=== PATIENT | female | born 1950 | race Caucasian/White ===

== ENCOUNTER 2017-10-06 18:33 | Emergency (ER) | payer MEDICARE ==
[~2017-10-06] VITALS: Ht 170.2 cm; Wt 91.0 kg
[~2017-10-06 18:33] MED LIST: CALTTAB PO; FLUO40CA PO; OXYC1SOL5 PO; PREM.625 PO; RIVA10 PO; TAB-TAB PO; Z.0.COMMODE-3:1; Z.0.WALKERFRONT
[2017-10-06 18:52] VITALS: BP 141/82; PULSE 142; RESP 21; TEMP 98.7; O2SAT 98
--- NOTE | 2017-10-06 18:53 | PD ---
Physical Exam Date Seen by Provider: Oct 06, 2017 Narrative Patient presents complaining with fatigue, difficulty walking secondary to weakness, chest discomfort. Onset has been 1-2 weeks. She has a history of multiple sclerosis. Data Data Orders Orders Diltiazem Inj (Cardizem Inj) (10/06/17 19:00) Electrocardiogram (10/06/17 18:47) Basic Metabolic Panel (Bmp) (10/06/17 18:47) Ckmb (Isoenzyme) Profile (10/06/17 18:47) Complete Blood Count With Diff (10/06/17 18:47) Magnesium (Mg) (10/06/17 18:47) Prothrombin Time / Inr (Pt) (10/06/17 18:47) Act Partial Throm Time (Ptt) (10/06/17 18:47) Troponin I (10/06/17 18:47) Chest, Single Ap (10/06/17 18:47) Ecg Monitoring (10/06/17 18:47) Bilateral Bp Monitoring (10/06/17 18:47) Iv Access Insert/Monitor (10/06/17 18:47) Oximetry (10/06/17 18:47) Oxygen Administration (10/06/17 18:47) Aspirin Chew (Aspirin Chew) (10/06/17 19:00) Sodium Chloride 0.9% Flush (Ns Flush) (10/06/17 19:00) MDM Supervised Visit with MAYI: Yes Narrative Course I, Dr. Broderick, have reviewed the advance practice practitioner's documentation and am in agreement, met with the patient face to face, made the diagnosis, and the medical decision making was done by me. *My assessment and Findings: Her EKG had a normal sinus rhythm with no acute ischemic changes. The patient is awake and alert and in no acute distress. Please see Jessica Luna NP's note for laboratory and radiology results, final diagnosis and disposition Mayda Broderick MD Oct 06, 2017 18:53
--- NOTE | 2017-10-06 18:54 | PD ---
HPI Chief Complaint: palpitations Time Seen by Provider: 18:43 Travel History International Travel<30 days: No Contact w/Intl Traveler<30days: No History of Present Illness HPI 67-year-old female presents to the emergency department for evaluation of feeling like her heart is racing for the past 3 hours. Patient states she has been having intermittent short episodes of feeling like her heart is racing for the past year. However, it will usually go away but would not go away this time. Patient has never followed up with anybody about this issue. She reports history of anxiety. She denies any chest pain. No fevers or chills. No abdominal pain. No nausea, vomiting, diarrhea. Patient states that she had a cardiac catheterization approximately 10 years ago which was normal as never had any issues since. Moderate severity. No exacerbating or alleviating factors. PFSH Past Medical History Arthritis: No Asthma: No Anxiety: Yes Depression: Yes Heart Rhythm Problems: No Cancer: No Cardiovascular Problems: Yes (ARRHYTHMIA) Chemotherapy: No Chest Pain: No Congestive Heart Failure: No COPD: No Cerebrovascular Accident: No Diabetes: No Diminished Hearing: No Endocrine: No GERD: No Genitourinary: No Hepatitis: No Hiatal Hernia: No Immune Disorder: No Kidney Stones: No Musculoskeletal: Yes (ARTHRITIS, OSTEOPOROSIS) Neurologic: No Psychiatric: Yes (ANXIETY) Reproductive: No Respiratory: Yes (ASTHMA YOUTH) Migraines: No Radiation Therapy: No Seizures: No Sickle Cell Disease: No Sleep Apnea: No Thyroid Disease: No Ulcer: No Menopausal: Yes Past Surgical History AICD: No Arteriovenous Shunt: No Body Medical Devices: LEFT KNEE WITH SCREWS Eye Surgery: Yes (LEFT CATARACT EXTRACT.) Insulin Pump: No Joint Replacement: Yes (LEFT KNEE) Pacemaker: No Social History Alcohol Use: Yes (OCC) Tobacco Use: No (QUIT) Substance Use: No Allergies-Medications (Allergen,Severity, Reaction): Coded Allergies: morphine (Unverified Adverse Reaction, Intermediate, NAUSEA, 06/29/17) OK IF GIVEN WITH PHENERGAN Reported Meds & Prescriptions Reported Meds & Active Scripts Active Walker Front Wheel (Walkerfront) Device 1 Unit Commode-3:1 Device 1 Unit Xarelto 10 Mg Tab (Rivaroxaban) 10 Mg Tab 10 Mg PO Q24H Oxycodone/Acetaminophen 5 mg/325 mg 5 mg/325 mg Tab 1 Tab PO Q4H PRN Reported Multivitamin (Multivitamins) 1 Tab Tab 1 Tab PO DAILY Caltrate 600+D (Calcium Carbonate/Cholecalciferol) + Tab 1 Tab PO BID Fluoxetine (Fluoxetine HCl) 40 Mg Cap 40 Mg PO DAILY Prempro (Estrogens Conj/Medroxyprogest Acet) 0.625 Mg/2.5 Mg Tab 1 Tab PO HS Review of Systems Except as stated in HPI: all other systems reviewed are Neg Physical Exam Narrative GENERAL: Well-nourished, well-developed female patient, afebrile. SKIN: Focused skin assessment warm/dry. HEAD: Normocephalic. Atraumatic EYES: No scleral icterus. No injection or drainage. NECK: Supple, trachea midline. No JVD or lymphadenopathy. CARDIOVASCULAR: Irregular rhythm, tachycardic without murmurs, gallops, or rubs. Bilateral radial and pedal pulses are 2+. RESPIRATORY: Breath sounds equal bilaterally. No accessory muscle use. Lungs sounds are clear to auscultation. GASTROINTESTINAL: Abdomen soft, non-tender, nondistended. MUSCULOSKELETAL: No cyanosis, or edema. BACK: Nontender without obvious deformity. No CVA tenderness. Data Data Last Documented VS Vital Signs Date Time Temp Pulse Resp B/P (MAP) Pulse Ox O2 Delivery O2 Flow Rate FiO2 10/06/17 20:15 77 18 141/71 (94) 99 10/06/17 18:52 98.7 Room Air Orders Orders Diltiazem Inj (Cardizem Inj) (10/06/17 19:00) Electrocardiogram (10/06/17 18:47) Basic Metabolic Panel (Bmp) (10/06/17 18:47) Ckmb (Isoenzyme) Profile (10/06/17 18:47) Complete Blood Count With Diff (10/06/17 18:47) Magnesium (Mg) (10/06/17 18:47) Prothrombin Time / Inr (Pt) (10/06/17 18:47) Act Partial Throm Time (Ptt) (10/06/17 18:47) Troponin I (10/06/17 18:47) Chest, Single Ap (10/06/17 18:47) Ecg Monitoring (10/06/17 18:47) Bilateral Bp Monitoring (10/06/17 18:47) Iv Access Insert/Monitor (10/06/17 18:47) Oximetry (10/06/17 18:47) Oxygen Administration (10/06/17 18:47) Aspirin Chew (Aspirin Chew) (10/06/17 19:00) Sodium Chloride 0.9% Flush (Ns Flush) (10/06/17 19:00) CKMB (10/06/17 19:00) CKMB% (10/06/17 19:00) Electrocardiogram (10/06/17 ) Aspirin Chew (Aspirin Chew) (10/06/17 20:30) Labs Laboratory Tests Test 10/06/17 19:00 White Blood Count 10.0 TH/MM3 Red Blood Count 4.81 MIL/MM3 Hemoglobin 15.2 GM/DL Hematocrit 45.1 % Mean Corpuscular Volume 93.7 FL Mean Corpuscular Hemoglobin 31.6 PG Mean Corpuscular Hemoglobin Concent 33.7 % Red Cell Distribution Width 12.9 % Platelet Count 244 TH/MM3 Mean Platelet Volume 9.2 FL Neutrophils (%) (Auto) 56.6 % Lymphocytes (%) (Auto) 36.2 % Monocytes (%) (Auto) 6.1 % Eosinophils (%) (Auto) 0.6 % Basophils (%) (Auto) 0.5 % Neutrophils # (Auto) 5.6 TH/MM3 Lymphocytes # (Auto) 3.6 TH/MM3 Monocytes # (Auto) 0.6 TH/MM3 Eosinophils # (Auto) 0.1 TH/MM3 Basophils # (Auto) 0.0 TH/MM3 CBC Comment DIFF FINAL Differential Comment Prothrombin Time 10.0 SEC Prothromb Time International Ratio 0.9 RATIO Activated Partial Thromboplast Time 24.0 SEC Blood Urea Nitrogen 17 MG/DL Creatinine 1.30 MG/DL Random Glucose 106 MG/DL Calcium Level 8.9 MG/DL Magnesium Level 1.7 MG/DL Sodium Level 141 MEQ/L Potassium Level 3.5 MEQ/L Chloride Level 105 MEQ/L Carbon Dioxide Level 29.6 MEQ/L Anion Gap 6 MEQ/L Estimat Glomerular Filtration Rate 41 ML/MIN Total Creatine Kinase 132 U/L Creatine Kinase MB 1.7 NG/ML Troponin I LESS THAN 0.02 NG/ML MDM Medical Decision Making Medical Screen Exam Complete: Yes Emergency Medical Condition: Yes Medical Record Reviewed: Yes Interpretation(s) Last Impressions Chest X-Ray 10/06/17 4474 Signed Impressions: Service Date/Time: September 18:57 - CONCLUSION: 1. Cardiomegaly. No effusion or pneumothorax. Aydin Delgado MD Differential Diagnosis Atrial fibrillation with RVR versus ACS versus anxiety Narrative Course 67-year-old female presents to the emergency department for evaluation of her heart is racing for the past 3 hours. EKG shows atrial fibrillation, RVR, heart rate 141. Patient is given Cardizem 20 mg IV. CBC, BMP, CK, troponin, magnesium, PTT, PT/INR, chest x-ray are ordered and pending. CBC is unremarkable. BMP shows creatinine 1.30, no acute abnormality. CK is 132. Troponin is less than 0.02. Magnesium is 1.7. Coags shows no acute abnormality. Chest x-ray shows cardiomegaly, no acute abnormality. Repeat EKG shows sinus rhythm, heart rate 82. Patient states she feels 100% better. I spoke to her primary care physician, Dr. Dai, who recommends aspirin daily and follow up with him in the office. He will fax his discharge at [phone]. Patient verbalizes agreement to this. The patient was discharged in stable condition with instructions, including return instructions and follow up instructions. Diagnosis Primary Impression: Atrial fibrillation with RVR Referrals: Primary Care Physician call for appointment Patient Instructions: A-fib (Atrial Fibrillation) (ED), General Instructions Additional Instructions: Take aspirin daily. Follow-up with your physician next week. Return to the emergency department for any acute worsening of symptoms. Med/Other Pt SpecificInfo: Prescription(s) given Scripts Aspirin (Aspirin) 325 Mg Tab 325 MG PO DAILY, #30 TAB 0 Refills Prov: Sigifredo Lunamaritza HEALY 10/06/17 Disposition: 01 DISCHARGE HOME Condition: Stable Jessica Luna Oct 06, 2017 18:54
[2017-10-06] MEDS ORDERED: SODIUM CHLORIDE 0.9% FLUSH 10 ML FLUSH IVF PRN (19:00)
[2017-10-06] MEDS ORDERED: ASPIRIN 81 MG CHEW TAB PO ONE (19:00)
[2017-10-06] MEDS ORDERED: DILTIAZEM HCL 25 MG/5 ML VIAL IV PUSH ONE (19:00)
[2017-10-06 19:03] VITALS: PULSE 101; RESP 21; O2SAT 97
[2017-10-06 19:14] LABS: AUTOMATED NEUTROPHIL # 5.6 TH/MM3 (1.8-7.7); BASOPHIL % 0.5 % (0.0-2.0); EOSINOPHIL # 0.1 TH/MM3 (0-0.4); EOSINOPHIL % 0.6 % (0.0-4.0); HEMATOCRIT 45.1 % (35.0-46.0); HEMO FLAGS DIFF FINAL; LYMPH % 36.2 % (9.0-44.0); LYMPHOCYTE # 3.6 TH/MM3 (1.0-4.8); MEAN CELL VOLUME 93.7 FL (80.0-100.0); MEAN CORPUSCULAR HEMOGLOBIN 31.6 PG (27.0-34.0); MEAN CORPUSCULAR HGB CONC 33.7 % (32.0-36.0); MONO % 6.1 % (0.0-8.0); NEUT % 56.6 % (16.0-70.0); PLATELET COUNT 244 TH/MM3 (150-450); RED BLOOD COUNT 4.81 MIL/MM3 (4.00-5.30); RED CELL DISTRIBUTION WIDTH 12.9 % (11.6-17.2)
[2017-10-06 19:17] VITALS: BP 140/85; PULSE 77; RESP 18; O2SAT 99
[2017-10-06 19:24] LABS: INTERNATIONAL NORMALIZED RATIO 0.9 RATIO
--- NOTE | 2017-10-06 19:27 | RADRPT ---
EXAM DATE/TIME: 10/06/2017 18:57 [facility] COMPARISON: No previous studies available for comparison. INDICATIONS : Palpitations. MEDICAL HISTORY : None. SURGICAL HISTORY : Total knee replacement, left. Total knee replacement, right. Heart cath. Carpal tunnel, right. ENCOUNTER: Initial ACUITY: 1 day PAIN SCORE: 0/10 LOCATION: Bilateral chest FINDINGS: A single view of the chest demonstrates the lungs to be symmetrically aerated without evidence of mas s, infiltrate or effusion. Cardiomegaly present. No effusion or pneumothorax. CONCLUSION: 1. Cardiomegaly. No effusion or pneumothorax. Aydin Delgado MD on October 06, 2017 at 19:25 Board Certified Radiologist. This report was verified electronically.
[2017-10-06 19:32] LABS: ANION GAP 6 MEQ/L (5-15); BICARBONATE 29.6 MEQ/L (21.0-32.0); BLOOD UREA NITROGEN 17 MG/DL (7-18); CHLORIDE 105 MEQ/L (98-107); GLOMERULAR FILTRATION RATE 41 ML/MIN (>89); MAGNESIUM 1.7 MG/DL (1.5-2.5); POTASSIUM 3.5 MEQ/L (3.5-5.1); SODIUM (NA) 141 MEQ/L (136-145)
[2017-10-06 19:34] LABS: CREATINE KINASE 132 U/L (26-192)
[2017-10-06 19:46] LABS: CKMB 1.7 NG/ML (0.5-3.6)
[2017-10-06 20:15] VITALS: BP 141/71; PULSE 77; RESP 18; O2SAT 99
[2017-10-06] MEDS ORDERED: ASPIRIN 81 MG CHEW TAB CHEW ONE (20:30)
[2017-10-06] MEDS ORDERED: ASPI-183 PO (20:32)
--- NOTE | 2017-10-07 13:24 | EKG ---
Date Performed: 10/06/2017 Time Performed: 20:03:18 PTAGE: 67 years EKG: Sinus rhythm MARKED RIGHT AXIS DEVIATION ABNORMAL ECG Compared to PREVIOUS TRACING , sinus rhythm returns with normalization of tracing. PREVIOUS TRACIN10/06/2017 18.43 DOCTOR: Boaz Jenkins Interpretating Date/Time 10/07/2017 13:24:12
--- NOTE | 2017-10-07 13:24 | EKG ---
Date Performed: 10/06/2017 Time Performed: 18:43:31 PTAGE: 67 years EKG: ATRIAL FIBRILLATION WITH RAPID VENTRICULAR RESPONSE MARKED RIGHT AXIS DEVIATION NONSPECIFIC ST & T-WAVE ABNORMALITY ABNORMAL ECG Compared to PREVIOUS TRACING , atrial fibrillation with rVr is new. ST-T changes may represent ischem ia, clinical correlation is recommended. PREVIOUS TRACIN07/09/2016 10.28 DOCTOR: Boaz Jenkins Interpretating Date/Time 10/07/2017 13:23:31
== END 2017-10-06 20:54 | disposition home or self-care (01) ==
LOC: NEPE 18:33
DX: I48.91 Unspecified atrial fibrillation (principal); R94.31 Abnormal electrocardiogram [ECG] [EKG]; I51.7 Cardiomegaly; F41.9 Anxiety disorder, unspecified; F32.9 Major depressive disorder, single episode, unspecified; M81.0 Age-related osteoporosis without current pathological fracture; J45.909 Unspecified asthma, uncomplicated; Z79.899 Other long term (current) drug therapy; Z88.5 Allergy status to narcotic agent
CPT/HCPCS: 71010; 80048; 82550; 82552; 83735; 84484; 85025; 85610; 85730; 93005; 96374